=== PATIENT | male | born 1995 ===

== ENCOUNTER 2017-08-23 23:19 | Emergency (ER) | payer SELFPAY ==
[2017-08-23] MEDS ORDERED: TYLENOL PO ONE (23:33)
[2017-08-23 23:34] VITALS: BP 136/76
[2017-08-23] MEDS ORDERED: TYLENOL ONE (23:35)
== END 2017-08-24 01:30 | disposition left against medical advice (07) ==
LOC: ED 23:19
DX: J02.9 Acute pharyngitis, unspecified (principal); Z53.21 Procedure and treatment not carried out due to patient leaving prior to being seen by health care provider
CPT/HCPCS: 87116; 87430